=== PATIENT | female | born 1960 | race Caucasian/White ===

== ENCOUNTER → 2017-05-21 | Outpatient (CLI) | payer BC ==
--- NOTE | 2017-05-21 11:44 | KCIC ---
INDICATION: Chronic low back pain with left lower extremity pain and numbness. TECHNIQUE: Sagittal T1, sagittal T2, sagittal STIR, axial T1, and axial T2 sequences are provided. No comparison is available. FINDINGS: Anterolisthesis at L5-S1 measures 11 mm, likely secondary to L5 pars defects bilaterally. There is otherwise no malalignment. There is fatty replacement of the endplates at a few levels. There is narrowing of the interspace at L5-S1. There is diffuse disc desiccation. The conus medullaris is normal in signal intensity and in position. Subcutaneous edema is noted. The numbering system assumes 5 lumbar type vertebral bodies. Findings by individual level are as follows: L1-L2: There is a minimal disc bulge without canal or foraminal compromise. L2-L3: Mild disc bulge and minimal facet hypertrophy are noted without canal or foraminal compromise. L3-L4: Disc bulge and facet hypertrophy are noted with no significant canal or foraminal compromise. L4-L5: Disc bulge and mild to moderate facet hypertrophy are noted along with mild ligamentum flavum hypertrophy. There is fluid in the facet joints. There is indentation of the thecal sac posterolaterally bilaterally but no high-grade canal stenosis, midline AP diameter of the thecal sac still 13 mm. There is mild left lateral recess narrowing. There is mild bilateral foraminal narrowing. L5-S1: In addition to the anterolisthesis there is unroofing of the disc and facet hypertrophy. There is [id number] left and mild right foraminal narrowing. There is lateral recess narrowing, both S1 nerve roots are in contact with the disc. There is no canal stenosis. IMPRESSION: 1. Degenerative disc disease and facet and ligamentum flavum hypertrophy are greatest at L4-L5. 2. Grade 2 spondylolisthesis at L5-S1 appears to be secondary to bilateral L5 pars defects. Electronically signed by: Mingo Morales MD (05/21/2017 11:41 AM) [id number]
== END | disposition home or self-care (01) ==
LOC: KCIC MRI 09:15
PROVIDERS: ATTEND Physician Assistant
DX: M51.36 Other intervertebral disc degeneration, lumbar region (principal); M43.17 Spondylolisthesis, lumbosacral region; M79.605 Pain in left leg; R20.0 Anesthesia of skin
CPT/HCPCS: 72148

== ENCOUNTER → 2018-11-08 | Outpatient (CLI) | payer OTHER ==
--- NOTE | 2018-11-08 12:54 | KCIC ---
MR of the right shoulder Indication: Right shoulder bursitis, tendinitis. Pain for 6 or 7 months. Decreased range of motion.. Comparison: None are available. Technique: Standard multiplanar sequences are obtained. Findings: Artifact: Mild motion degradation. Acromioclavicular joint: Mildly degenerative. Small subacromial spur. Rotator cuff: * Supraspinatus-infraspinatus tendon: Full-thickness tear of the anterior supraspinatus tendon measures about 1 cm AP diameter. The undersurface is retracted about 1 cm. * Subscapularis tendon: Partial tear * Muscle bulk: Mild volume loss * Subacromial subdeltoid bursa: Small effusion. Fluid: Small glenohumeral effusion. Glenohumeral cartilage: No acute defect or advanced DJD. Labrum: Small posterosuperior labral tear. Biceps tendon: Tendinosis with partial tearing. Slight medial subluxation at the lesser tuberosity. Bones: No lesion or acute fracture. Soft tissue: No acute findings.. Impression: 1. Small full-thickness tear of the anterior supraspinatus tendon, partial subscapularis tendon tear. 2. Small posterosuperior labral tear. 3. Biceps tendinosis with partial tearing. Electronically signed by: Ish Perry MD (11/08/2018 12:50 PM) [facility]-[email or web address]
== END | disposition home or self-care (01) ==
LOC: KCIC MRI 09:40
PROVIDERS: ATTEND Family Medicine
DX: S43.081A Other subluxation of right shoulder joint, initial encounter (principal); M75.101 Unspecified rotator cuff tear or rupture of right shoulder, not specified as traumatic; M75.21 Bicipital tendinitis, right shoulder; M25.411 Effusion, right shoulder; X58.XXXA Exposure to other specified factors, initial encounter; Y93.89 Activity, other specified; Y92.89 Other specified places as the place of occurrence of the external cause; Y99.8 Other external cause status
CPT/HCPCS: 73221

== ENCOUNTER 2019-01-17 07:43 | Day surgery (SDC) | payer OTHER ==
[~2019-01-17] VITALS: Ht 157.5 cm; Wt 73.5 kg
[~2019-01-17 07:43] MED LIST: AMLO10TA8 PO; ASPI-630 PO; BIOT10TA PO; EPINEPHrine VIAL 30 MG/30 ML VIAL ONE; HYDROmorphone 2 MG/ML VIAL IV PRN; IV RINGERS,LACTATED 1000ML 1,000 ML IV SCH; LIDOCAINE 1% PF 2 ML VIAL. ID PRN; MORPHINE SULFATE 2 MG/ML VIAL. IV PRN; MULT1TAB52 PO; ONDANSETRON PF 4 MG/2 ML VIAL. IV PRN; PROCHLORPERAZINE 10 MG/2 ML VIAL. IV PRN; VITAMIN B12 INJ; fentaNYL PF VIAL 100 MCG/2 ML VIAL IV PRN
[2019-01-17] MEDS ORDERED: LIDOCAINE 2% PF 5 ML VIAL. ONE (08:52)
[2019-01-17] MEDS ORDERED: ONDANSETRON PF 4 MG/2 ML VIAL. ONE (08:52)
[2019-01-17] MEDS ORDERED: ROCURONIUM 50 MG/5 ML VIAL. ONE (08:52)
[2019-01-17] MEDS ORDERED: PROPOFOL 20 ML IV ONE (08:52)
[2019-01-17] MEDS ORDERED: MIDAZOLAM HCL/PF 2 MG/2 ML VIAL. ONE (08:52)
[2019-01-17] MEDS ORDERED: ROPIVacaine 0.5% PF 20 ML VIAL. ONE (08:52)
[2019-01-17] MEDS ORDERED: fentaNYL PF VIAL 100 MCG/2 ML VIAL ONE (08:52)
[2019-01-17] MEDS ORDERED: DEXAMETHASONE SOD PHOS 20 MG/5 ML VIAL. ONE (08:52)
[2019-01-17] MEDS ORDERED: PHENYLEPHRINE in 0.9% NACL PF 1 MG/10 ML SYRINGE. IV ONE (09:57)
[2019-01-17] MEDS ORDERED: ePHEDrine PF IN SALINE 50 MG/10 ML SYRINGE. IV ONE (09:57)
[2019-01-17] MEDS ORDERED: GLYCOPYRROLATE 1 MG/5 ML VIAL. ONE (11:24)
[2019-01-17] MEDS ORDERED: NEOSTIGMINE METHYLSULFATE 5 MG/5 ML SYRINGE. ONE (11:24)
[2019-01-17] MEDS ORDERED: SEVOFLURANE > 120 MINUTES. IH ONE (11:28)
[2019-01-17] MEDS ORDERED: OXYC1TAB19 PO (11:54)
--- NOTE | 2019-01-17 11:58 | DISCH ---
DISCHARGE INSTRUCTIONS Condition on Discharge Condition on Discharge: Stable Activity After Discharge Activity Instructions for Disc: Other, see below (May use hand to eat and do fine motor functions with elbow at side no active lifting of arm away from side , immobilizer on at night at all times) Weight Bearing Status after Di: Non weight bearing Diet after Discharge Diet after Discharge: Regular Wound Incision Care Wound/Incision Care: Ice to area for comfort, Change dressing (remove dressing in 2 days may then shower no soaking until sutures removed) Community/Resources/Services Services at Discharge: PT EVALUATE & TREAT (immediate passive range of motion no active range of motion or strengthening expected for about 1 month) Contacting the after DC Call your doctor for: Concerns you may have Follow-Up Follow up with: Dr. Camacho 1 week LAUREN CAMACHO MD Jan 17, 2019 11:58
--- NOTE | 2019-01-17 12:11 | PDOC4 ---
Operative Note Operative Note Date of surgery 01/17/2019 Preoperative diagnosis: Rotator cuff tear and suspected biceps long head fraying Postoperative diagnosis: Same with full-thickness distal supraspinatus tear and significant biceps fraying in the bicipital groove Operative procedure: Right shoulder arthroscopy rotator cuff tear biceps tenodesis Surgeon: Doug Assist: Vineet Han Anesthesia: Gen. plus scalene block Estimated blood loss: 10 mL Complications: None Operative indications: Please see my preoperative clinic note for detailed operative indications and note that patient has continued pain and weakness in her right upper extremity documented rotator cuff tear on MRI and concern with possible biceps tendon long head compromise as well. I had gone over with her risks benefits postoperative course of surgical procedure with planned rotator cuff repair and addressing any other pathology as appropriate, the long recovery process expected risks of possible nonhealing continued pain nerve or blood vessel damage medical or other anesthetic complications among others all her questions were answered she wishes to proceed with surgical evaluation and treatment Operative text: Patient was identified she verified patient placed in the supine position on the operating table. After adequate amounts of general anesthesia plus a pre-existing scalene block were obtained she was placed in the decubitus position right side up all bony prominences were well-padded and the right shoulder was prepped and draped in standard sterile fashion. The shoulder was examined under anesthesia found a full range of motion no gross instability. After timeout was performed patient procedure identified and verified, a standard posterior portal was established an anterior portal established using spinal needle localization and the shoulder joint was systematically examined. She was found to have severe biceps tendon fraying biceps tendon was tagged and cut from its insertion on superior labrum superior labrum was debrided back to stable tissue humeral head was noted to have some mild chondromalacia but no full-thickness defect remainder labrum and capsule ligament structures were intact she was noted to have a full-thickness tear of the distal supraspinatus normal bare area of the humerus normal subscapularis insertion. Subacromial space was then entered bursa was cleared to allow visualization rotator cuff footprint was debrided back to stable bleeding tissue a total of 2 absorbable medial row anchors composite TCP with double loaded suture anchor were used suture was placed in a simple fashion and the lateral row fixation as well as the biceps fixation was carried out with a Ventex link knotless anchor 2 of which were used over the lateral row excellent fixation was noted in a watertight repair noted under all degrees of internal/ external rotation joint was drained of arthroscopic fluid portals were closed with nylon suture sterile dressings were applied patient was placed in an immobilizer and returned recovery room stable condition having tolerated procedure well LAUREN MESA MD Jan 17, 2019 12:11
[2019-01-17] MEDS ORDERED: oxyCODONE/APAP 7.5/325 1 TAB TABLET PO ONE (12:45)
[2019-01-17 13:20] VITALS: BP 132/75
== END 2019-01-17 13:25 | disposition home or self-care (01) ==
LOC: SURG 07:43
PROVIDERS: ATTEND Orthopaedic Surgery
DX: S46.011A Strain of muscle(s) and tendon(s) of the rotator cuff of right shoulder, initial encounter (principal); S46.211A Strain of muscle, fascia and tendon of other parts of biceps, right arm, initial encounter; M94.211 Chondromalacia, right shoulder; I10 Essential (primary) hypertension; Z98.890 Other specified postprocedural states; Z98.84 Bariatric surgery status; Z79.899 Other long term (current) drug therapy; Z87.891 Personal history of nicotine dependence; X58.XXXA Exposure to other specified factors, initial encounter; Y93.89 Activity, other specified; Y92.89 Other specified places as the place of occurrence of the external cause; Y99.8 Other external cause status; K21.9 Gastro-esophageal reflux disease without esophagitis; Z79.82 Long term (current) use of aspirin; Z90.49 Acquired absence of other specified parts of digestive tract; Z72.89 Other problems related to lifestyle
CPT/HCPCS: 29827; 29828; A7015; C1713; J0171; J0690; J1100; J2001; J2250; J2370; J2405; J2704; J2710; J2795; J3010; J3490; J7120

== ENCOUNTER → 2020-01-25 | Outpatient (CLI) | payer OTHER, BC ==
[~2020-01-25] MED LIST changes: -EPINEPHrine VIAL 30 MG/30 ML VIAL ONE; -HYDROmorphone 2 MG/ML VIAL IV PRN; -IV RINGERS,LACTATED 1000ML 1,000 ML IV SCH; -LIDOCAINE 1% PF 2 ML VIAL. ID PRN; -MORPHINE SULFATE 2 MG/ML VIAL. IV PRN; -ONDANSETRON PF 4 MG/2 ML VIAL. IV PRN; +OXYC1TAB19 PO; -PROCHLORPERAZINE 10 MG/2 ML VIAL. IV PRN; -fentaNYL PF VIAL 100 MCG/2 ML VIAL IV PRN
--- NOTE | 2020-01-25 12:30 | KCIC ---
EXAM: MRI Cervical Spine without IV contrast INDICATION: Constant neck pain, spasm, numbness and tingling in the upper extremities. By report symptoms in the last 3 weeks and neck pain for 2 years.. TECHNIQUE: Sagittal T1-w, T2-w, and STIR images, and axial T2-w and T2-GRE images of the cervical spine. COMPARISON: CT cervical myelogram of 08/23/2007 FINDINGS: CRANIOCERVICAL JUNCTION: Normal alignment. Incidental scalloping of the sella turcica, suggesting a partially empty sella in the included field of view. ALIGNMENT: Alignment is within normal limits. OSSEOUS: No evidence of fracture or bone destruction. Marrow signal is within normal limits. SPINAL CORD: The cervical spinal cord is intrinsically normal. SOFT TISSUES: Unremarkable. DISC LEVELS: C2-C3: Unremarkable. C3-C4: Disc osteophyte complex with mild bilateral vertebral hypertrophy mildly flattens the ventral thecal sac but results in no significant central canal stenosis. There is mild bilateral foraminal narrowing. Minimal associated bilateral facet hypertrophy. C4-C5: Disc osteophyte complex with endplate osteophytic spurring and loss of height results in moderate right and severe left foraminal narrowing. There is mild flattening of the ventral thecal sac, resulting in AP central canal diameter mild narrowing to 9 mm. C5-C6: Disc ossified complex with uncovertebral hypertrophy results in severe right foraminal stenosis and mild to moderate left foraminal stenosis. There is mild deformity of the right anterolateral cervical cord and partial effacement of the CSF signal around the anterior cervical cord. Central canal measures 8 mm AP diameter. C6-C7: Disc ossified complex with bilateral uncovertebral hypertrophy results in moderate right foraminal narrowing. Small right paracentral extruded disc fragment projecting caudally from the C6-C7 disc (best visualized on sagittal image 10 of series 2 and axial image 21 of series 5) is present. It is 4 mm tall and 3 mm thick. C7-T1: Unremarkable. IMPRESSION: Multilevel cervical degenerative spondylosis as described with varying degrees of central canal and predominantly foraminal stenosis, most conspicuous at the C5-C6 level where severe right foraminal narrowing is noted. Electronically signed by: Leif Ramos MD (01/25/2020 12:27 PM) [id number]
== END | disposition home or self-care (01) ==
LOC: KCIC MRI 11:20
PROVIDERS: ATTEND Family Medicine
DX: M47.812 Spondylosis without myelopathy or radiculopathy, cervical region (principal); M48.02 Spinal stenosis, cervical region; R20.0 Anesthesia of skin
CPT/HCPCS: 72141

== ENCOUNTER → 2020-05-20 | Outpatient (CLI) | payer OTHER, BC ==
[~2020-05-20] MED LIST changes: +MULT-445 PO; -MULT1TAB52 PO
== END | disposition home or self-care (01) ==
LOC: LAB 07:54
PROVIDERS: ATTEND Orthopaedic Surgery
DX: Z01.818 Encounter for other preprocedural examination (principal); Z11.59 Encounter for screening for other viral diseases; M65.4 Radial styloid tenosynovitis [de Quervain]
CPT/HCPCS: U0003-CS

== ENCOUNTER 2020-05-24 07:27 | Day surgery (SDC) | payer OTHER, BC ==
[~2020-05-24] VITALS: Ht 157.5 cm; Wt 78.9 kg
[2020-05-24] MEDS ORDERED: IV RINGERS,LACTATED 1000ML 1,000 ML IV SCH (08:00)
[2020-05-24] MEDS ORDERED: ceFAZolin SODIUM IV Push 1 GM VIAL. IVP PRN (08:00)
[2020-05-24] MEDS ORDERED: PROPOFOL 10 MG/ML (20ML) VIAL. IV ONE (08:21)
[2020-05-24] MEDS ORDERED: DEXAMETHASONE SOD PHOS 4 MG/ML VIAL ONE ×2 (08:22→08:23)
[2020-05-24] MEDS ORDERED: ONDANSETRON PF 4 MG/2 ML VIAL. ONE ×2 (08:22→08:23)
[2020-05-24] MEDS ORDERED: LIDOCAINE 2% PF 5 ML VIAL. ONE (08:22)
[2020-05-24] MEDS ORDERED: fentaNYL PF VIAL 100 MCG/2 ML VIAL ONE ×2 (08:25→10:23)
[2020-05-24] MEDS ORDERED: BUPIVACAINE MPF 0.25% 30 ML VIAL. ONE (09:07)
[2020-05-24] MEDS ORDERED: BUPIVACAINE MPF 0.25% 10 ML VIAL. ONE (09:09)
--- NOTE | 2020-05-24 09:24 | DISCH ---
DISCHARGE INSTRUCTIONS Condition on Discharge Condition on Discharge: Stable Activity After Discharge Activity Instructions for Disc: Other, see below (Avoid hard grasp, fine motor use only such as eating typing writing) Bathing Instructions: Shower-keep dressing dry Weight Bearing Status after Di: As tolerated Diet after Discharge Diet after Discharge: Regular Wound Incision Care Wound/Incision Care: Ice to area for comfort, Change dressing, Do not change dressing Contacting the DRMadai after DC Call your doctor for: Concerns you may have Follow-Up Follow up with: Dr. Camacho 10 days LAUREN CAMACHO MD May 24, 2020 09:24
[2020-05-24] MEDS ORDERED: MORPHINE SULFATE 2 MG/ML VIAL. IV PRN (10:15)
[2020-05-24] MEDS ORDERED: HYDROmorphone 2 MG/ML VIAL IV PRN (10:15)
[2020-05-24] MEDS ORDERED: oxyCODONE/APAP 7.5/325 1 TAB TABLET PO PRN (10:15)
[2020-05-24] MEDS ORDERED: PROCHLORPERAZINE 10 MG/2 ML VIAL. IV PRN (10:15)
[2020-05-24] MEDS ORDERED: fentaNYL PF VIAL 100 MCG/2 ML VIAL IV PRN (10:15)
[2020-05-24] MEDS: fentaNYL PF VIAL 100 MCG/2 ML VIAL IV PRN ×2 (10:26→10:31)
[2020-05-24 10:55] VITALS: BP 164/85
--- NOTE | 2020-05-24 17:15 | PDOC4 ---
Operative Note Operative Note Date of surgery: 05/24/2020 Preoperative diagnosis: Right wrist de Quervain's tenosynovitis and median nerve compression at carpal tunnel with history of previous carpal tunnel release Postoperative diagnosis: Same with mild median nerve compression Operative procedure: #1 right first dorsal compartment release, #2 right carpal tunnel release Surgeon: Doug Continuous Drier Helper: Enmanuel carvajal Anesthesia: General Estimated blood loss: 5 cc Complications: None Operative indications: Please see my previous orthopedic clinic note for detailed operative indications and note that we reviewed preoperatively the rationale for the operative release of the first dorsal compartment we had talked to the possibility of continued pain nerve or blood vessel damage medical or other anesthetic complications among others for this procedure and the exploration of the carpal tunnel with her recurrent symptoms. I indicated that there is no guarantee that we can completely get rid of her symptoms but sometimes of scar tissue is re-impinging on the area can be pressing on the nerve. She wishes to proceed with surgical evaluation and treatment having given informed consent. Operative text: Patient was identified procedure verified patient placed in the supine position on the operating table. After adequate amounts of general anesthesia were administered the right upper extremity was prepped and draped in standard sterile fashion with an upper arm tourniquet. After timeout was performed patient procedure identified and verified the right upper extremity was exsanguinated by Esmarch bandage tourniquet inflated to 250 mmHg first dorsal compartment release was performed dividing the thickened tendon sheath and she clearly had tendon irritation without overt compromise of the tendon but fluid was retained clearly indicating irritation and tenosynovitis. Attention was then turned to the carpal tunnel where a incision was made longitudinally just distal to the distal palmar crease dissection carried out to the transverse carpal ligament area which at this point was just more scar tissue and showing mild compression of the median nerve. Flexor tendons were noted to be intact without any signs of synovitis or compromise. Full release was noted visually and palpably. Thorough irrigation was carried out normal saline solution both incisions closed with nylon suture sterile compressive soft dressings were applied patient was returned to recovery room in stable condition having tolerated procedure well fingers were noted to be warm pink following deflation of the tourniquet Enmanuel carvajal was present for the procedure assisted in the prepping draping retraction closure and dressings LAUREN MESA MD May 24, 2020 17:15
== END 2020-05-24 11:25 | disposition home or self-care (01) ==
LOC: SURG 07:27
PROVIDERS: ATTEND Orthopaedic Surgery
DX: G56.01 Carpal tunnel syndrome, right upper limb (principal); M65.841 Other synovitis and tenosynovitis, right hand; I10 Essential (primary) hypertension; Z79.82 Long term (current) use of aspirin; Z79.899 Other long term (current) drug therapy; Z98.84 Bariatric surgery status; Z98.890 Other specified postprocedural states
CPT/HCPCS: 25000; 64721; A7015; J0690; J1100; J2405; J2704; J3010; J3490